=== PATIENT | male | born 1960 | race Caucasian/White ===

== ENCOUNTER 2025-02-25 10:45 | Outpatient (OUT) | payer BC, SELFPAY ==
--- NOTE | 2025-02-25 | XR_ITS ---
[address] [address] Patient Name: AIMEE BLAKE MRN: [id number] date: 1960 Sex: M Assigned Patient Location: RAD Current Patient Location: [facility] Accession/Order Number: [id number] Exam Date: 02/25/2025 12:37 Report Date: 02/25/2025 12:38 At the request of: CHARI RODRIGUEZ DO Procedure: XR knee RT 4V 4 views right knee plain film COMPARISON: None HISTORY: Right knee pain ACUTE FINDINGS: No acute findings DEGENERATIVE CHANGE: Moderate medial joint space during and marginal spurring SOFT TISSUE FINDINGS: Unremarkable JOINT EFFUSION: None POSTOP CHANGES: None BONE MINERALIZATION: Adequate XR/XR knee RT 4V IMPRESSION: Moderate medial degeneration Impression dictated by: Steve Rueda M.D. 02/25/2025 12:38 PM Dictation Location: [place] [address] Electronically authenticated by: [id number] Y Date: 02/25/2025 12:38
--- NOTE | 2025-02-25 | XR_ITS ---
The [address] [address] Patient Name: AIMEE BLAKE MRN: [id number] date: 1960 Sex: M Assigned Patient Location: RAD Current Patient Location: [facility] Accession/Order Number: [id number] Exam Date: 02/25/2025 12:36 Report Date: 02/25/2025 12:37 At the request of: CHARI RODRIGUEZ DO Procedure: XR hip RT 2V w/ pelvis 2 views right hip a single view pelvis HISTORY: Chronic right hip pain and knee pain Adequate hip joint spaces. Preserved bony articular surface. No AVN. Adequate SI joints. XR/XR hip RT 2V w/ pelvis IMPRESSION: Unremarkable right hip Impression dictated by: Steve Rueda M.D. 02/25/2025 12:37 PM Dictation Location: [place] [address] Electronically authenticated by: [id number] Y Date: 02/25/2025 12:37
--- OUTSIDE RECORDS SUMMARY | 2025-02-25 10:47 | XMS_ITS | Patient Health Record ---
Author Organization [facility] Address [address] [place] [address] Care Team Providers Care Residential Framing Carpenter Name Role Phone Sourav Baptiste MD Primary Care Provider Unavailabl e Reason For Referral No Information Plan Of Treatment Pending Test Test Name Order Date CT Abdomen and Pelvis w/o contrast 05/11 Insurance Providers Payer Name Payer Address Payer Phone Subscriber Number Group Number Insured Name Patient Relationship to Insured Coverage Start Date Coverage End Date [employer] PPO PLUS LOCAL PLAN [address] [place] [address] [id number] Meryl Phillip Self - patient is the insured 9
--- OUTSIDE RECORDS SUMMARY | 2025-02-25 10:47 | XMS_ITS | Clinical Summary ---
Author Organization [facility] Healthcare Address [address] [facility] [place] [address] Care Team Providers Care Special Education Science Teacher Name Role Phone Unavailable Primary Care Provider Unavailabl e Allergies Active Allergy Reactions Criticality Noted Date Comments Atorvastatin 01/03/2024 Other Reaction(s): Myalgia, Myalgia Medications amLODIPine (Norvasc) 2.5 MG tablet Take 2.5 mg by mouth Daily Active amLODIPine (Norvasc) 5 MG tablet Take 5 mg by mouth Daily Active Ascorbic Acid (vitamin C) 1000 MG tablet 1 (one) time each day at the same time Active ezetimibe (Zetia) 10 MG tablet Take 10 mg by mouth Daily Active losartan (Cozaar) 100 MG tablet Take 100 mg by mouth Daily Active potassium chloride CR (Klor-Con M20) 20 MEQ ER tablet Take 20 mEq by mouth in the morning and 20 mEq before bedtime. 4 Active rosuvastatin (Crestor) 5 MG tablet Take 5 mg by mouth Daily Active tiZANidine (Zanaflex) 4 MG tablet Take 4 mg by mouth 4 Active atorvastatin (Lipitor) 20 MG tablet Take 20 mg by mouth Daily 4 Active pantoprazole (ProtoNix) 40 MG EC tablet Take 40 mg by mouth Daily 5 Active hydrocortisone 2.5 % creamIndication s:Other seborrheic dermatitis Apply topically 2 (two) times a day as needed (Rash) Apply thin layer to affected areas bid prn for flares 30 g 11 5 Active metroNIDAZOLE (Metrolotion) 0.75 % lotion lotionIndicatio ns:Other rosacea Apply thin layer to face, once daily, 30 day supply 59 mL 11 Active Active Problems No known active problems Encounters Date Type Department Care Team Description 12/07/2024 Telephone [facility] [address] [place] [phone] Amanda Goel LPN Referral 12/07/2024 Results Follow-Up [facility] [address] [place] [address] Mitra Gomez PA Dermatopathology exam 12/06/2024 Telephone [facility] [address] [place] [phone] Tayla Barnett LPN Results 11/28/2024 9:20 AM EDT [facility] [address] [place] [address] Mitra Gomez PA Other seborrheic dermatitis (Primary Dx); Other rosacea; Melanocytic nevus of face, other location; Neoplasm of unspecified behavior of bone, soft tissue, and skin; Skin tag; Seborrheic keratosis [facility]20[facility] [address] [place] [address] Mitra Gomez PA 11/28/2024 Travel from Last 3 Months Social History Tobacco Use Types Packs/Day Years Used Date Smoking Tobacco: Unknown Tobacco Cessation:Counseling Given: Not Answered Sex and Gender Information Value Date Recorded Sex Assigned at Not on file Legal Sex Male 11:13 PM EDT Gender Identity Not on file Sexual Orientation Not on file Last Filed Vital Signs Vital Sign Reading Time Taken Comments Blood Pressure - - Pulse - - Temperature - - Respiratory Rate - - Oxygen Saturation - - Inhaled Oxygen Concentration - - Weight 101 kg (222 lb) 11/11/2020 12:00 PM EDT Height 172.7 cm (5' 8 ) 11/11/2020 12:00 PM EDT Body Mass Index 33.75 11/11/2020 12:00 PM EDT Plan of Treatment Upcoming Encounters Date Type Department Care Team (Late st Contact Info) Description 04/08/2025 10:20 AM EDT Office Visit [facility] [address] [place] [address] Mitra Gomez, SHAGGY [address] [place] [address] Procedures Procedure Name Priority Date/Time Associated Diagnosis Comments SKIN / NAIL BIOPSY Routine 11/28/2024 9: 40 AM EDT Neoplasm of unspecified behavior of bone, soft tissue, and skin DERMATOPATHOLOGY EXAM Routine 11/28/2024 12:00 AM EDT Neoplasm of unspecified behavior of bone, soft tissue, and skin from Last 3 Months Results * Lesion biopsy (11/28/2024 9:40 AM EDT) Narrative Omar Magaña LPN - 11/28/2024 9:40 AM EDT Type of biopsy: tangential Informed consent: discussed and consent obtained Informed consent comment: The risks and benefits of the biopsy were discussed. Risks include but are not limited to bleeding, infection, scarring, pain, and nerve damage. An opportunity to ask questions prior to the procedure was permitted and all questions were answered. Patient was prepped and draped in usual sterile fashion: area cleansed with alcohol. Anesthesia: the lesion was anesthetized in a standard fashion Anesthetic: 1% lidocaine w/ epinephrine 1-100,000 buffered w/ 8.4% NaHCO3 Instrument used: DermaBlade Hemostasis achieved with: electrodesiccation Outcome: patient tolerated procedure well Outcome comment: The specimen was placed in a prelabeled formalin container to be sent for pathology Post-procedure details: sterile dressing applied and wound care instructions given Post-procedure details comment: Emphasized need to contact clinic for any signs of infection, uncontrollable bleeding, or complications. Dressing type: bandage Additional details: Photo taken Amount of lidocaine used: 0.5 cc Mitra [facility] PROCEDURE ORDERABLES Fin al Result * Dermatopathology exam (11/28/2024 12:00 AM EDT) SPECIMEN TYPE -------- SPECIMEN: RIGHT ROOT OF NOSE -------- [facility] ICD10 Code C44.311 [facility] PROTOCOL F - FLAT [facility] Final Diagnosis INFUNDIBULOCYSTIC BASAL CELL CARCINOMA, MILD CHRONIC INFLAMMATION AND TRANSECTED. [facility] Gross Text [facility] Microscopic Description Microscopic examination performed. [facility] CPT 77412*1 [facility] Skin Topography unknown / Unknown 11/28/2024 9:40 AM EDT Comment:Differential Diagnos is: David hyperplasia vs BCC Check Margins: No Size of lesion: 0.6 x 0.4 cm us Mitra [facility]Y ORDERABLES Gisel haney Result [facility] from Last 3 Months Insurance MEDICARE AET
--- OUTSIDE RECORDS SUMMARY | 2025-02-25 10:47 | XMS_ITS | Encounter Summary ---
Author Organization [facility] Address [address] [place] [address] Care Team Providers Care Grommet Machine Operator Name Role Phone Unavailable Primary Care Provider Unavailabl e Encounter Details Date Type Department Care Team (Latest Contact Info) Description 12/07/2024 Results Follow-Up [facility] [address] [place] [address] Mitra Gomez PA [address] [place] [address] Dermatopathology exam Social History Tobacco Use Types Packs/Day Years Used Date Smoking Tobacco: Unknown Sex and Gender Information Value Date Recorded Sex Assigned at Not on file Legal Sex Male 11:13 PM EDT Gender Identity Not on file Sexual Orientation Not on file documented as of this encounter Miscellaneous Notes * Result Encounter Note - SHAGGY Melendez - 12/07/2024 8:03 AM EDT Right root of nose - BCC. Mohs recommended (AUC=8). OK to schedule with TF if the wait is not too long, otherwise would recommend Dr. Swanson. documented in this encounter Plan of Treatment Upcoming Encounters Date Type Department Care Team (Late st Contact Info) Description 04/08/2025 10:20 AM EDT Office Visit [facility] [address] [place] [address] Mitra Gomez PA [address] [place] [address] documented as of this encounter Visit Diagnoses Not on filedocumented in this encounter
--- OUTSIDE RECORDS SUMMARY | 2025-02-25 10:47 | XMS_ITS | Clinical Summary ---
Author Organization [facility] Address [address] [place] [address] Phone Care Team Providers Care Rig Builder Helper Name Role Phone Unavailable Primary Care Provider Unavailabl e Allergies Active Allergy Reactions Criticality Noted Date Comments Atorvastatin Myalgia 01/03/2024 Medications potassium chloride CR 20 mEq ER tablet Take 1 tablet (20 mEq) by mouth once daily. 07/25/2023 Active amLODIPine (Norvasc) 2.5 mg tablet Take 1 tablet (2.5 mg) by mouth once daily. 10/13/2023 Active amLODIPine (Norvasc) 5 mg tablet Take 1 tablet (5 mg) by mouth once daily. 07/22/2023 Active losartan (Cozaar) 100 mg tablet Take 1 tablet (100 mg) by mouth once daily. 08/29/2023 Active pantoprazole (ProtoNix) 40 mg EC tablet Take 1 tablet (40 mg) by mouth once daily in the morning. Take before meals. 11/08/2023 Active cholecalciferol (Vitamin D-3) 10 MCG (400 UNIT) tablet Take 1 tablet (10 mcg) by mouth once daily. Active multivitamin with minerals tablet Take 1 tablet by mouth once daily. Active rosuvastatin (Crestor) 5 mg tablet Take 1 tablet (5 mg) by mouth once daily. 12/29/2023 Active Active Problems Problem Noted Date Diagnosed Date Palpitations 01/03/2024 Hyperlipidemia 11/10/2023 Hypertension 11/10/2023 Former smoker 11/10/2023 BMI 39.0-39.9,adult 11/10/2023 RBBB 11/10/2023 Chest pain 11/10/2023 Shortness of breath 11/10/2023 GERD (gastroesophageal reflux disease) 4 Fatigue 11/10/2023 Family History Medical History Relation Name Comments No Known Problems Brother COPD Father Lung disease Father Diverticulitis Mother Relation Name Status Comments Brother Father Mother Social History Tobacco Use Types Packs/Day Years Used Date Smoking Tobacco: Former Cigarettes Smokeless Tobacco: Never Alcohol Use Standard Drinks/Week Comments Yes 0 (1 standard drink = 0.6 oz pur e alcohol) occasions Sex and Gender Information Value Date Recorded Sex Assigned at Not on file Legal Sex Male 3:30 PM EDT Gender Identity Not on file Sexual Orientation Not on file Last Filed Vital Signs Vital Sign Reading Time Taken Comments Blood Pressure 124/78 01/03/2024 1:35 PM EDT Pulse 72 01/03/2024 1:35 PM EDT Temperature - - Respiratory Rate - - Oxygen Saturation - - Inhaled Oxygen Concentration - - Weight 111 kg (245 lb) 01/03/2024 1:35 PM EDT Height 167.6 cm (5' 6 ) 01/03/2024 1:35 PM EDT Body Mass Index 39.54 01/03/2024 1:35 PM EDT Plan of Treatment Health Maintenance Due Date Last Done Comments CT Colonography 1960 Colonoscopy 1960 Colorectal Cancer Screening 1960 FIT-DNA (Cologuard) 1960 FIT 1960 Lipid Panel 1960 Sigmoidoscopy 1960 MMR Vaccines (1 of 1 - Standard series) 1960 Diabetes Screening 1977 Hepatitis C Screening 1977 DTaP/Tdap/Td Vaccines (1 - Tdap) 1981 PSA Prostate Cancer Screening 2009 Pneumococcal Vaccine (1 of 1 - PCV) 2009 Zoster Vaccines (1 of 2) 2009 COVID-19 Vaccine (1 - season) 2024 Yearly Adult Physical 05/10/2024 05/09/2023 , 05/04/2022, 05/01/2021, Additional history exists Influenza Vaccine (#1) 2025 RSV High Risk: (Elderly (60+) or Population) (1 - 1-dose 75+ series) 2034 HIB Vaccines Aged Out No longer eligi ble based on patient's age to complete this topic HPV Vaccines Aged Out No longer eligi ble based on patient's age to complete this topic Hepatitis A Vaccines Aged Out No long er eligible based on patient's age to complete this topic Hepatitis B Vaccines Aged Out No long er eligible based on patient's age to complete this topic IPV Vaccines Aged Out No longer eligi ble based on patient's age to complete this topic Meningococcal Vaccine Aged Out No mara rosana eligible based on patient's age to complete this topic Rotavirus Vaccines Aged Out No longer eligible based on patient's age to complete this topic [facility]
--- OUTSIDE RECORDS SUMMARY | 2025-02-25 10:47 | XMS_ITS | Clinical Summary ---
Author Organization [id number] [address] [place] [address] Care Team Providers Care Tonguer Name Role Phone Sourav Baptiste MD Primary Care Provider Patricia becker Social History Tobacco Use Types Packs/Day Years Used Date Smoking Tobacco: Never Assessed Childcare Answer Date Recorded Childcare Unknown 12/20/2018 Employment Answer Date Recorded Employment Unknown 12/20/2018 Sex and Gender Information Value Date Recorded Sex Assigned at Not on file Legal Sex Male 12:02 PM EDT Gender Identity Not on file Sexual Orientation Not on file Plan of Treatment Health Maintenance Due Date Last Done Comments Depression Screening 1971 Tobacco Screening 1971 Adult BMI Screening 1977 DTaP,Tdap and Td Vaccines (1 - Tdap) 1978 Zoster (Shingles) Vaccine (1 of 2) 2009 Fall Risk Screening 2024 Influenza Vaccine 03/11/2025 Medical Devices Not on file Insurance [employer] Care Teams Tonguer Relationship Specialty Start Date End Date Sourav Baptiste MD PCP - General Family Medicine 07/06/21
== END 2025-02-25 10:46 | disposition home or self-care (01) ==
LOC: RAD 10:45
PROVIDERS: Visit Provider Orthopaedic Surgery Orthopaedic Trauma
DX: M25.551 Pain in right hip (principal); M23.91 Unspecified internal derangement of right knee
CPT/HCPCS: 73502; 73564

== ENCOUNTER 2025-04-08 10:40 | Outpatient (OUT) | payer MEDICARE, SELFPAY ==
--- NOTE | 2025-04-08 | XR_ITS ---
The [place] [id number] Patient Name: AIMEE BLAKE MRN: [id number] date: 1960 Sex: M Assigned Patient Location: [facility] Current Patient Location: [facility] Accession/Order Number: [id number] Exam Date: 04/08/2025 11:10 Report Date: 04/08/2025 11:36 At the request of: CHARI RODRIGUEZ DO Procedure: XR lumbar spine min 4V LUMBAR SPINE WITH FLEXION-EXTENSION VIEWS -4 views: CLINICAL HISTORY: Low back pain for the past 2 weeks COMPARISON: None AP as well as lateral views in neutral, flexion and extension were obtained. There is no acute compression fracture. There is slight retrolisthesis of T12 on L1. There is no significant change in alignment with flexion or extension. Mild disc space narrowing is seen at L1-2 and L3-4. There is moderate narrowing at L4-5 and L5-S1. Small endplate spurs are present throughout. There is mid and lower lumbar facet hypertrophy. The sacroiliac joints are maintained. There are no paraspinal soft tissue abnormalities. XR/XR lumbar spine min 4V IMPRESSION: DEGENERATIVE CHANGES, DESCRIBED. NO ACUTE BONY FINDINGS. Impression dictated by: Radha Santizo M.D. 04/08/2025 11:36 AM Dictation Location: [place] [address] Electronically authenticated by: [id number] Y Date: 04/08/2025 11:36
== END 2025-04-08 10:41 | disposition home or self-care (01) ==
LOC: RAD 10:41
PROVIDERS: Visit Provider Orthopaedic Surgery Orthopaedic Trauma
DX: M17.0 Bilateral primary osteoarthritis of knee (principal)
CPT/HCPCS: 72110